=== PATIENT | female | born 1975 | race Caucasian/White ===

== ENCOUNTER 2019-02-05 12:09 | Emergency (ER) | payer MEDICAID ==
[~2019-02-05] VITALS: Ht 160 cm; Wt 54.4 kg
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
--- NOTE | 2019-02-05 12:20 | NUR ---
ATTACHED TO THE SOMMELIER.
[2019-02-05] MEDS ORDERED: ASPIRIN 81 MG TAB.CHEW PO ONE (12:30)
[2019-02-05] MEDS ORDERED: LIDOCAINE VISCOUS 2% UD 15 ML UDC MM ONE (12:30)
[2019-02-05] MEDS ORDERED: MAG HYDROX/AL HYDROX/SIMETH 30 ML UDC PO ONE (12:30)
[2019-02-05] MEDS ORDERED: ASPIRIN 81 MG TAB.CHEW ONE (12:35)
[2019-02-05] MEDS ORDERED: MAG HYDROX/AL HYDROX/SIMETH 30 ML UDC ONE (12:35)
[2019-02-05] MEDS ORDERED: LIDOCAINE VISCOUS 2% UD 15 ML UDC ONE (12:35)
[2019-02-05 12:59] LABS: BASOPHILS % (AUTO) 0.7 % (0.0-2.0); EOSINOPHILS % (AUTO) 4.3 % (0.0-6.0); HEMATOCRIT 33 % (33-45); HEMOGLOBIN 10.1 g/dL (11.5-14.8); LYMPHOCYTES # (AUTO) 1.4 /CMM (0.8-4.8); LYMPHOCYTES % (AUTO) 34.5 % (20.0-44.0); MEAN CORPUSCULAR HGB CONC 31 g/dl (31.0-36.0); MEAN CORPUSCULAR VOLUME 80 fL (82-100); MONOCYTES # (AUTO) 0.4 /CMM (0.1-1.30); NEUTROPHILS # (AUTO) 2.1 /CMM (1.8-8.9); NEUTROPHILS % (AUTO) 50.5 % (43.0-81.0); PLATELET COUNT (AUTO) 323 /CMM (150-450); RED BLOOD CELL COUNT(AUTO) 4.04 MIL/uL (4.0-5.2); WHITE BLOOD COUNT (AUTO) 4.2 K/uL (4.3-11.0)
[2019-02-05 13:11] LABS: ALANINE AMINOTRANSFERASE 31 U/L (12-78); ALBUMIN 3.7 g/dL (3.4-5.0); ALKALINE PHOSPHATASE 65 U/L (46-116); ASPARTATE AMINOTRANSFERASE 23 U/L (15-37); BILIRUBIN,DIRECT 0.1 mg/dL (0.0-0.2); BILIRUBIN,TOTAL 0.5 mg/dL (0.2-1.0); CALCIUM, SERUM 8.6 mg/dL (8.5-10.1); CARBON DIOXIDE 28 mmol/L (21-32); CHLORIDE 104 mmol/L (98-107); CREATININE 0.5 mg/dL (0.6-1.3); GLUCOSE 99 mg/dL (74-106); SODIUM SERUM 138 mmol/L (136-145); TOTAL PROTEIN, SERUM 7.2 g/dL (6.4-8.2); UREA NITROGEN, BLOOD 5 mg/dL (7-18)
[2019-02-05 14:33] VITALS: BP 105/67
== END 2019-02-05 14:33 | disposition home or self-care (01) ==
LOC: ER 12:11
DX: R07.89 Other chest pain (principal); D50.9 Iron deficiency anemia, unspecified; Z60.2 Problems related to living alone
CPT/HCPCS: 36415; 71045-TC; 80048-TC; 80076-TC; 84484-TC; 85025-TC

== ENCOUNTER 2019-05-26 21:21 | Emergency (ER) | payer MEDICAID ==
[~2019-05-26] VITALS: Ht 160 cm; Wt 56.2 kg
[2019-05-26 21:31] VITALS: BP 130/99
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
[2019-05-26] MEDS ORDERED: TDAP [DIPH/PERTUSSIS/TET] 0.5 ML VIAL IM ONE ×2 (23:00→23:06)
--- NOTE | 2019-05-26 23:14 | NUR ---
Patient discharged to home in stable condition. Written and verbal after care instructions given. Patient verbalizes understanding of instruction.
== END 2019-05-26 23:14 | disposition home or self-care (01) ==
LOC: ER 21:26
DX: S61.012A Laceration without foreign body of left thumb without damage to nail, initial encounter (principal); Z60.2 Problems related to living alone; W26.8XXA Contact with other sharp object(s), not elsewhere classified, initial encounter; Y93.89 Activity, other specified; Y92.89 Other specified places as the place of occurrence of the external cause; Y99.8 Other external cause status
CPT/HCPCS: 12002; 90471; 90715; 99283; A6403

== ENCOUNTER 2019-05-31 11:06 | Emergency (ER) | payer MEDICAID ==
[~2019-05-31] VITALS: Ht 162.6 cm; Wt 59.9 kg
--- NOTE | 2019-05-31 11:20 | NUR ---
BIBS FROM HOME TO ER BED 7. AAOX4. NOT IN RESP DISTRESS, BREATHING EVEN AND UNLABORED. SPEAKING IN FUL SENTENCES. APPEARS ANXIOUS. AMBULATORY. C/O SOB. PER PT, SHE WAS DRINKING LAST NIGHT AND TOOK ADVIL THIS MORNING @ 0900. AN HOUR AFTER PT STARTED TO HAVE SOB. DENIES PAIN. LUNG SOUNDS ARE CLEAR. SATTING @ 100%. AWAITING MD FOR EVAL. PT IS ON MONITOR
--- NOTE | 2019-05-31 11:35 | NUR ---
XRAY AT BEDSIDE
--- NOTE | 2019-05-31 11:58 | NUR ---
Patient discharged to home in stable condition. Written and verbal after care instructions given. Patient verbalizes understanding of instruction. Pt ambulatory with a steady gait
[2019-05-31 11:59] VITALS: BP 112/63
== END 2019-05-31 12:00 | disposition home or self-care (01) ==
LOC: ER 11:08
DX: F10.99 Alcohol use, unspecified with unspecified alcohol-induced disorder (principal); F41.0 Panic disorder [episodic paroxysmal anxiety]; Z60.2 Problems related to living alone; Y90.9 Presence of alcohol in blood, level not specified
CPT/HCPCS: 71045-TC

== ENCOUNTER 2019-06-03 19:25 | Emergency (ER) | payer MEDICAID ==
[~2019-06-03] VITALS: Ht 160 cm; Wt 54.4 kg
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
--- NOTE | 2019-06-03 19:33 | NUR ---
AT BEDSIDE FOR EXAMINATION.
--- NOTE | 2019-06-03 19:35 | NUR ---
AT BEDSIDE FOR SUTURE REMOVAL
--- NOTE | 2019-06-03 19:38 | NUR ---
TECH AT BEDSIDE FOR CLEANING.
--- NOTE | 2019-06-03 20:02 | NUR ---
Patient discharged to home in stable condition. Written and verbal after care instructions given. Patient verbalizes understanding of instruction.Pt ambulatory with a steady gait
[2019-06-03 20:03] VITALS: BP 122/84
== END 2019-06-03 20:03 | disposition home or self-care (01) ==
LOC: ER 19:25
DX: S61.012D Laceration without foreign body of left thumb without damage to nail, subsequent encounter (principal); Z60.2 Problems related to living alone; W26.0XXD Contact with knife, subsequent encounter

== ENCOUNTER 2024-02-09 12:47 | Emergency (ER) | payer MEDICAID ==
[~2024-02-09] VITALS: Ht 160 cm; Wt 61.1 kg
[2024-02-09 13:05] VITALS: TEMP 98.4
[2024-02-09 14:39] VITALS: BP 118/80; O2SAT 98
== END 2024-02-09 14:39 | disposition home or self-care (01) ==
LOC: ER 13:10
DX: S53.402A Unspecified sprain of left elbow, initial encounter (principal); X58.XXXA Exposure to other specified factors, initial encounter; Y93.89 Activity, other specified; Y92.89 Other specified places as the place of occurrence of the external cause; Y99.8 Other external cause status; Z87.19 Personal history of other diseases of the digestive system
CPT/HCPCS: 73080-TC